=== PATIENT | male | born 1965 | race Two or more races ===

== ENCOUNTER 2021-06-14 17:12 | Inpatient (IN) | payer BC ==
[~2021-06-14] VITALS: Ht 170.2 cm; Wt 67.7 kg
[2021-06-14 17:55] LABS: BASO % 0 % (0-3); EOS # 0.1 x10^3/uL (0.0-0.7); EOS % 1 % (0-3); HEMATOCRIT 42.5 % (39.0-53.0); HEMOGLOBIN 14.6 g/dL (13.0-17.5); LYMPH # 1.1 x10^3/uL (1.0-4.8); LYMPH % 11 % (24-48); MEAN CORPUSCULAR HEMOGLOBIN 30 pg (25-35); MEAN CORPUSCULAR HGB CONC 34 g/dL (31-37); MEAN CORPUSCULAR VOLUME 87 fL (79-100); MONO # 0.7 x10^3/uL (0.0-1.1); MONO % 8 % (0-9); NEUT # 7.5 x10^3/uL (1.8-7.7); NEUT % 80 % (31-73); PLATELET COUNT 211 x10^3/uL (140-400); RED BLOOD COUNT 4.86 x10^6/uL (4.30-5.70); RED CELL DISTRIBUTION WIDTH 13.3 % (11.5-14.5); WHITE BLOOD COUNT 9.4 x10^3/uL (4.0-11.0)
[2021-06-14 18:11] LABS: CALCIUM 9.1 mg/dL (8.5-10.1); CREATININE 1.3 mg/dL (0.7-1.3); GFR 57.3; POTASSIUM 4.5 mmol/L (3.5-5.1)
[2021-06-14 18:16] LABS: ALBUMIN 2.8 g/dL (3.4-5.0); ALBUMIN/GLOBULIN RATIO 0.5 (1.0-1.7); MAGNESIUM 2.4 mg/dL (1.8-2.4); TOTAL BILIRUBIN 0.7 mg/dL (0.2-1.0); TOTAL PROTEIN 8.1 g/dL (6.4-8.2)
--- NOTE | 2021-06-14 18:21 | RAD ---
EXAM: CHEST 1 VIEW History: Cough COMPARISON: None available. TECHNIQUE: Single portable radiograph of the chest FINDINGS: The cardiac silhouette is unremarkable. Mild bibasilar lung atelectasis or infiltrates. Th e costophrenic sulci are clear and well demarcated. IMPRESSION: Mild bibasilar lung atelectasis or infiltrates. Electronically signed by: Brett Duckworth MD (06/14/2021 6:19 PM) [id number]
--- NOTE | 2021-06-14 18:43 | EKG ---
[facility] [address] [place] [address] Test Date: 2021-06-14 Test Time: 17:46:39 Pat Name: PHANI HADLEY Department: Room: Gender: M [employer]: : 1965 Requested By: SAHIL MENA Order Number: [id number] Reading MD: Measurements Intervals [place] Rate: 95 P: 44 ND: 120 QRS: 19 QRSD: 92 T: 41 QT: 344 QTc: 435 Interpretive Statements SINUS RHYTHM NORMAL ECG RI6.02 No previous ECG available for comparison
[2021-06-14] MEDS ORDERED: PIPERACILLIN/TAZOBACTAM 3.375 GM in IV NORMAL SALINE 50ML 50 ML IV ONE (21:30)
--- NOTE | 2021-06-14 22:53 | PHYS DOC ---
Past Medical History Past Medical History: Diabetes-Type II Past Surgical History: No Surgical History Smoking Status: Never Smoker Alcohol Use: None General Adult EDM: Chief Complaint: COUGH HPI: HPI: Patient is a 55 year old male who presents the ED today complaining of cough, shortness of breath, fatigue, poor appetite, symptoms began 2 weeks ago. Patient is in the ED with the son, he is Kazakh-speaking and the son is giving the history. Son states patient was seen at [facility] last week and diagnosed with seasonal allergies. He has been using the Flonase with no relief. Son denies further having any fever. Review of Systems: Review of Systems: Constitutional: Reports poor appetite and weakness. Denies fever or chills. [] Eyes: Denies change in visual acuity. [] HENT: Denies nasal congestion or sore throat. [] Respiratory: Reports cough and shortness of breath. [] Cardiovascular: Denies chest pain or edema. [] GI: Denies abdominal pain, nausea, vomiting, bloody stools or diarrhea. [] : Denies dysuria. [] Musculoskeletal: Denies back pain or joint pain. [] Integument: Denies rash. [] Neurologic: Denies headache, focal weakness or sensory changes. [] ] Psychiatric: Denies depression or anxiety. [] Heart Score: C/O Chest Pain: N/A Risk Factors: Risk Factors: DM, Current or recent (<one month) smoker, HTN, HLP, family history of CAD, obesity. Risk Scores: Score 0 - 3: 2.5% MACE over next 6 weeks - Discharge Home Score 4 - 6: 20.3% MACE over next 6 weeks - Admit for Clinical Observation Score 7 - 10: 72.7% MACE over next 6 weeks - Early Invasive Strategies Allergies: Allergies: Allergies Coded Allergies Type Severity Reaction Last Updated Verified No Known Drug Allergies 06/14/21 No Physical Exam: PE: Constitutional: Well developed, well nourished, no acute distress, non-toxic appearance. [] HENT: Normocephalic, atraumatic, bilateral external ears normal, oropharynx moist, no oral exudates, nose normal. [] Eyes: PERRLA, EOMI, conjunctiva normal, no discharge. [] Neck: Normal range of motion, no tenderness, supple, no stridor. [] Cardiovascular:Heart rate regular rhythm, no murmur [] Lungs & Thorax: Bilateral breath sounds clear to auscultation [] Abdomen: Bowel sounds normal, soft, no tenderness, no masses, no pulsatile masses. [] Skin: Warm, dry, no erythema, no rash. [] Back: No tenderness, no CVA tenderness. [] Extremities: No tenderness, no cyanosis, no clubbing, ROM intact, no edema. [] Neurologic: Alert and oriented X 3, normal motor function, normal sensory funct ion, no focal deficits noted. Cranial nerves II through XII intact Psychologic: Affect normal, judgement normal, mood normal. [] Current Patient Data: Labs: Laboratory Tests Test 06/14/21 17:40 06/14/21 17:41 06/14/21 20:50 White Blood Count 9.4 x10^3/uL (4.0-11.0) Red Blood Count 4.86 x10^6/uL (4.30-5.70) Hemoglobin 14.6 g/dL (13.0-17.5) Hematocrit 42.5 % (39.0-53.0) Mean Corpuscular Volume 87 fL (79-100) Mean Corpuscular Hemoglobin 30 pg (25-35) Mean Corpuscular Hemoglobin Concent 34 g/dL (31-37) Red Cell Distribution Width 13.3 % (11.5-14.5) Platelet Count 211 x10^3/uL (140-400) Neutrophils (%) (Auto) 80 % (31-73) H Lymphocytes (%) (Auto) 11 % (24-48) L Monocytes (%) (Auto) 8 % (0-9) Eosinophils (%) (Auto) 1 % (0-3) Basophils (%) (Auto) 0 % (0-3) Neutrophils # (Auto) 7.5 x10^3/uL (1.8-7.7) Lymphocytes # (Auto) 1.1 x10^3/uL (1.0-4.8) Monocytes # (Auto) 0.7 x10^3/uL (0.0-1.1) Eosinophils # (Auto) 0.1 x10^3/uL (0.0-0.7) Basophils # (Auto) 0.0 x10^3/uL (0.0-0.2) Sodium Level 138 mmol/L (136-145) Potassium Level 4.5 mmol/L (3.5-5.1) Chloride Level 99 mmol/L (98-107) Carbon Dioxide Level 29 mmol/L (21-32) Anion Gap 10 (6-14) Blood Urea Nitrogen 37 mg/dL (8-26) H Creatinine 1.3 mg/dL (0.7-1.3) Estimated GFR (Cockcroft-Gault) 57.3 BUN/Creatinine Ratio 28 (6-20) H Glucose Level 213 mg/dL (70-99) H Lactic Acid Level 2.5 mmol/L (0.4-2.0) H 1.3 mmol/L (0.4-2.0) Calcium Level 9.1 mg/dL (8.5-10.1) Magnesium Level 2.4 mg/dL (1.8-2.4) Total Bilirubin 0.7 mg/dL (0.2-1.0) Aspartate Amino Transferase (AST) 31 U/L (15-37) Alanine Aminotransferase (ALT) 23 U/L (16-63) Alkaline Phosphatase 107 U/L (46-116) Troponin I Quantitative < 0.017 ng/mL (0.000-0.055) < 0.017 ng/mL (0.000-0.055) VY-Ilr-W-Type Natriuretic Peptide 35 pg/mL (0-124) Total Protein 8.1 g/dL (6.4-8.2) Albumin 2.8 g/dL (3.4-5.0) L Albumin/Globulin Ratio 0.5 (1.0-1.7) L Thyroid Stimulating Hormone (TSH) 0.565 uIU/mL (0.358-3.74) SARS-CoV-2 Antigen (Rapid) Negative (NEGATIVE) Laboratory Tests 06/14/21 17:40 Laboratory Tests 06/14/21 17:40 Vital Signs: Vital Signs Date Time Temp Pulse Resp B/P (MAP) Pulse Ox O2 Delivery O2 Flow Rate FiO2 06/14/21 17:27 98.6 98 22 125/74 86 Room Air 98.6 EKG: EKG: [] Radiology/Procedures: Radiology/Procedures: []PROCEDURE: PORTABLE CHEST 1V EXAM: CHEST 1 VIEW History: Cough COMPARISON: None available. TECHNIQUE: Single portable radiograph of the chest FINDINGS: The cardiac silhouette is unremarkable. Mild bibasilar lung atelectasis or infiltrates. The costophrenic sulci are clear and well demarcated. IMPRESSION: Mild bibasilar lung atelectasis or infiltrates. Electronically signed by: Brett Duckworth MD (06/14/2021 6:19 PM) [id number] DICTATED and SIGNED BY: BRETT DUCKWORTH MD DATE: 06/14/21 [id number] 0 Course & Med Decision Making: Course & Med Decision Making Pertinent Labs and Imaging studies reviewed. (See chart for details) This is a 55-year-old male patient presenting to the ED today complaining of cough, shortness of breath, weakness, poor appetite, symptoms for 2 weeks. Patient arrives in the ED with O2 sats at 86% on room air, was put on oxygen 2 L, saturations came above 92%. Temperature 98.6, respiration 22, blood pressure 125/74. CBC with no acute findings, CMP with glucose of 213, history of diabetes type 2, anion gap is normal. Chest x-ray noted for infiltrate or atelectasis. Negative rapid Covid test. Spoke with Dr. Jones who accepted patient for admission Katie Disclaimer: Katie Disclaimer: This electronic medical record was generated, in whole or in part, using a voice recognition dictation system. Departure Departure Impression: Primary Impression: Person under investigation for COVID-19 Additional Impressions: Shortness of breath Hyperglycemia Cough Disposition: ADMITTED INPATIENT Condition: STABLE Referrals: UNKNOWN PCP NAME (PCP) SAHIL MENA [employer] Jun 14, 2021 22:53
[2021-06-14] MEDS ORDERED: ACETAMINOPHEN 325 MG TABLET. PO PRN (23:00)
[2021-06-14] MEDS ORDERED: DEXTROSE 50% 25 GM / 50ML DISP.SYRIN. IV PRN (23:00)
[2021-06-14] MEDS ORDERED: ONDANSETRON PF 4 MG/2 ML VIAL. IVP PRN (23:00)
[2021-06-14] MEDS ORDERED: MORPHINE SULFATE 2 MG/ML INJ. IVP PRN (23:00)
[2021-06-14 23:06] VITALS: BP 135/76
[2021-06-14] MEDS ORDERED: METF10007 PO (23:49)
[2021-06-14] MEDS ORDERED: LISI10TA16 PO (23:49)
[2021-06-15 03:03] VITALS: BP 117/73
[2021-06-15 07:00] VITALS: BP 117/69
[2021-06-15 08:11] LABS: CALCIUM 9.1 mg/dL (8.5-10.1); CREATININE 1.2 mg/dL (0.7-1.3); GFR 62.9; POTASSIUM 4.5 mmol/L (3.5-5.1)
[2021-06-15] MEDS: INSULIN LISPRO 300 UNITS/3 ML VIAL. SQ SCH ×3 (09:35→17:23)
[2021-06-15 11:00] VITALS: BP 114/67
[2021-06-15] MEDS ORDERED: PIP/TAZO PER PHARMACY MC PRN (11:45)
[2021-06-15] MEDS ORDERED: guaiFENesin/CODEINE 100mg/10mg 5 ML LIQUID PO PRN (11:45)
--- NOTE | 2021-06-15 11:56 | HP ---
ADMIT DATE: 06/15/2021 CHIEF COMPLAINT: Shortness of breath and cough. HISTORY OF PRESENT ILLNESS: The patient is a pleasant, healthy 55-year-old male who presented to the ER with above chief complaints. We tested him for COVID and is positive. We are admitting the patient for COVID protocol. PAST MEDICAL HISTORY: Diabetes. ALLERGIES: None. FAMILY HISTORY: Diabetes. SOCIAL HISTORY: He does not drink, smoke or take drugs. MEDICATIONS: Reviewed. Please refer to the MRAD. REVIEW OF SYSTEMS: GENERAL: No history of weight change, weakness or fevers. SKIN: No bruising, hair changes or rashes. EYES: No blurred, double or loss of vision. NOSE AND THROAT: No history of nosebleeds, hoarseness or sore throat. HEART: No history of palpitations, chest pain or shortness of breath on exertion. PULMONARY: He complains of cough and shortness of breath. GASTROINTESTINAL: Denies changes in appetite, nausea, vomiting, diarrhea or constipation. GENITOURINARY: No history of frequency, urgency, hesitancy or nocturia. NEUROLOGIC: Denies history of numbness, tingling, tremor or weakness. PSYCHIATRIC: No history of panic, anxiety or depression. ENDOCRINE: No history of heat or cold intolerance, polyuria or polydipsia. EXTREMITIES: Denies muscle weakness, joint pain, pain on walking or stiffness. PHYSICAL EXAMINATION: VITALS: Within normal limits and are stable. GENERAL: No apparent distress. Alert and oriented. HEENT: Normal cephalic atraumatic, external auditory canals are patent. Eyes: Extraocular muscles are intact, pupils are equally round and reactive to light and accommodation. MUSCULOSKELETAL: Well developed, well nourished, good range of motion. ENDOCRINE: No thyromegaly was palpated. LYMPHATICS: No cervical chain or axillary nodes were noted. HEMATOPOIETIC: No bruising. NECK: Supple, no JVD, no thyromegaly was noted. LUNGS: He has bibasilar crackles. HEART: RRR, S1, S2 present. Peripheral pulses intact, no obvious murmurs were noted. ABDOMEN: Soft, nontender. Positive bowel sounds no organomegaly, normal bowel sounds. EXTREMITIES: Without any cyanosis, clubbing, or edema. Pedal pulses intact, Homans sign is negative. NEUROLOGIC: Normal speech, normal tone. A and O x 3, moves all extremities, no obvious focal deficits. PSYCHIATRIC: Normal affect, normal mood. Stable. SKIN: No ulcerations or rashes, good skin turgor, no jaundice. VASCULAR: Good capillary refill, neurovascular bundle appears to be intact. LABORATORY DATA: COVID testing is positive. White count is normal at 9, hemoglobin 14, platelets 211. Electrolytes are normal. Glucose is high at 228. Chest x-ray shows mild bibasilar lung atelectasis or infiltrate. ASSESSMENT AND PLAN: COVID-19 respiratory failure. The patient has been admitted. We will start COVID protocol. IV steroids, IV antibiotics, vitamins and minerals, beta agonist, oxygen, cough syrup with codeine, aspirin and we will consider remdesivir. JIE/URBAN DR: Sima TID: [id number]
--- NOTE | 2021-06-15 12:00 | NUR ---
SW following. Discussed with RN, pt from home, 2L (does not use oxygen at home), cardaic diet. COVID-19 positive. Med Assist following for self pay status. SW will continue to follow.
[2021-06-15] MEDS: MULTIVITAMIN with MINERAL TABLET. PO SCH (12:48)
[2021-06-15] MEDS: PIPERACILLIN/TAZOBACTAM 3.375 GM in IV NORMAL SALINE 50ML 50 ML IV SCH ×2 (12:48→17:22)
[2021-06-15] MEDS: ASPIRIN CHEWABLE 81 MG TABLET. PO SCH (12:48)
[2021-06-15] MEDS: DOXYCYCLINE HYCLATE 100 MG in IV DEXTROSE 5% 100ML 100 ML IV SCH ×2 (14:10→21:20)
[2021-06-15 15:00] VITALS: BP 116/68
[2021-06-15 19:40] VITALS: BP_SYST 112
[2021-06-15] MEDS: methylPREDNISolone SOD SUCC PF 40 MG/ML VIAL. IV SCH (21:25)
[2021-06-15] MEDS: ENOXAPARIN 40 MG/0.4 ML SYRINGE. SQ SCH (21:25)
[2021-06-15 23:36] VITALS: BP 119/72
[2021-06-16] MEDS: PIPERACILLIN/TAZOBACTAM 3.375 GM in IV NORMAL SALINE 50ML 50 ML IV SCH ×4 (00:09→17:03)
[2021-06-16 03:45] VITALS: BP 106/63
[2021-06-16 06:41] VITALS: BP 108/60
[2021-06-16] MEDS: MULTIVITAMIN with MINERAL TABLET. PO SCH (08:24)
[2021-06-16] MEDS: ASPIRIN CHEWABLE 81 MG TABLET. PO SCH (08:24)
[2021-06-16] MEDS: methylPREDNISolone SOD SUCC PF 40 MG/ML VIAL. IV SCH ×2 (08:25→21:32)
[2021-06-16] MEDS: DOXYCYCLINE HYCLATE 100 MG in IV DEXTROSE 5% 100ML 100 ML IV SCH ×2 (08:25→21:32)
[2021-06-16] MEDS: INSULIN LISPRO 300 UNITS/3 ML VIAL. SQ SCH ×3 (08:27→17:08)
[2021-06-16 11:00] VITALS: BP 148/78
--- NOTE | 2021-06-16 11:36 | NUR ---
Pt requiring 3L at rest and 6L with activity from his 6 minute walk. Per RT, pt barely able to maintain an SpO2 of 90-91% with that 6L NC. Dr Jones notified. Going to hold discharge for today. Will continue to monitor.
--- NOTE | 2021-06-16 11:40 | PDOC ---
[facility] PROGRESS NOTE Date of Service DOS: DATE: 06/16/21 TIME: 11:34 Chief Complaint Chief Complaint COVID-19 Shortness of Breath Cough History of Present Illness History of Present Illness 06/16: Mr. Barros was seen and evaluated in his room today. He was sitting up in his bed and overall states that he is feeling much better. We discussed his chart and disposition with his nurse. Mr. Barros also states that he is fully vaccinated. Currently, Mr. Barros is on the COVID-19 Protocol (Enoxaparin, Methylprednisolone, Pipereacillin/Tazobactam, Aspirin, Multivitamins, Doxycycline, Guaifenesin/Codeine). Vitals/I&O Vitals/I&O: Vital Signs Date Time Temp Pulse Resp B/P (MAP) Pulse Ox O2 Delivery O2 Flow Rate FiO2 06/16/21 08:00 Nasal Cannula 2.0 06/16/21 06:41 97.7 71 18 108/60 (76) 98 97.7 I & O 06/15/21 06/15/21 06/16/21 15:00 23:00 07:00 Intake Total 240 ml Output Total 400 ml 700 ml Balance -400 ml -460 ml Physical Exam General: Alert, Oriented X3, Cooperative Heart: Regular rate, No murmurs Lungs: Clear Abdomen: Normal bowel sounds Extremities: No clubbing Skin: No rashes Labs Labs: Laboratory Tests Test 06/15/21 17:12 06/15/21 21:02 06/16/21 11:29 Glucose (Fingerstick) 217 mg/dL (70-99) 187 mg/dL (70-99) 370 mg/dL (70-99) Review of Systems Review of Systems: No Rash No Bleeding No Headache Assessment and Plan Assessmemt and Plan Problems Medical Problems: (1) Cough Status: Acute (2) Hyperglycemia Status: Acute (3) Person under investigation for COVID-19 Status: Acute (4) Shortness of breath Status: Acute We will start COVID protocol. IV steroids, IV antibiotics, vitamins and minerals, beta agonist, oxygen, cough syrup with codeine, aspirin and we will consider remdesivir. 1) Continue DVT Prophylaxis 2) Continue respiratory isolation 3) Home Medications 4) Full Code 5) Continue COVID-19 Protocol Comment Review of Relevant I have reviewed the following items sam (where applicable) has been applied. Medications: Current Medications Medications (Trade) Dose Ordered Sig/Raissa Route PRN Reason Start Time Stop Time Status Last Admin Dose Admin Doxycycline Hyclate 100 mg/ Dextrose 100 ml @ 50 mls/hr Q12HR IV 06/15/21 12:00 06/16/21 08:25 Multivitamins (Thera M Plus) 1 tab DAILY PO 06/15/21 12:00 06/16/21 08:24 Aspirin (Aspirin Chewable) 81 mg DAILYWBKFT PO 06/15/21 12:00 06/16/21 08:24 Piperacillin Sod/ Tazobactam Sod 3.375 gm/Sodium Chloride 50 ml @ 100 mls/hr Q6HRS IV 06/15/21 12:00 06/16/21 06:10 Methylprednisolone Sodium Succinate (SOLU-Medrol 40MG VIAL) 40 mg Q12HR IV 06/15/21 21:00 06/16/21 08:25 Enoxaparin Sodium (Lovenox 40mg Syringe) 40 mg Q24H SQ 06/15/21 21:00 06/15/21 21:25 Justifications for Admission Other Justification FERMIN MARCOS III DO Jun 16, 2021 11:40
[2021-06-16] MEDS ORDERED: INSULIN LISPRO 300 UNITS/3 ML VIAL. SQ ONE (11:45)
[2021-06-16 15:15] VITALS: BP 140/77
[2021-06-16 20:26] VITALS: BP 128/71
[2021-06-16] MEDS: ENOXAPARIN 40 MG/0.4 ML SYRINGE. SQ SCH (21:32)
[2021-06-16 23:56] VITALS: BP 147/83
[2021-06-17] MEDS: PIPERACILLIN/TAZOBACTAM 3.375 GM in IV NORMAL SALINE 50ML 50 ML IV SCH ×4 (00:33→17:06)
[2021-06-17 03:59] VITALS: BP 133/78
[2021-06-17 06:58] VITALS: BP 132/71
[2021-06-17] MEDS: MULTIVITAMIN with MINERAL TABLET. PO SCH (09:45)
[2021-06-17] MEDS: DOXYCYCLINE HYCLATE 100 MG in IV DEXTROSE 5% 100ML 100 ML IV SCH (09:45)
[2021-06-17] MEDS: ASPIRIN CHEWABLE 81 MG TABLET. PO SCH (09:45)
[2021-06-17] MEDS: INSULIN LISPRO 300 UNITS/3 ML VIAL. SQ SCH ×3 (09:46→16:59)
[2021-06-17] MEDS: methylPREDNISolone SOD SUCC PF 40 MG/ML VIAL. IV SCH (09:46)
[2021-06-17 11:00] VITALS: BP 122/73
--- NOTE | 2021-06-17 11:14 | PDOC ---
[facility] [facility] PROGRESS NOTE Date of Service DOS: DATE: 06/17/21 TIME: 11:11 Chief Complaint Chief Complaint COVID-19 Shortness of Breath Cough History of Present Illness History of Present Illness 06/16: Mr. Barros was seen and evaluated in his room today. He was sitting up in his bed and overall states that he is feeling much better. We discussed his chart and disposition with his nurse. Mr. Barros also states that he is fully vaccinated. Currently, Mr. Barros is on the COVID-19 Protocol (Enoxaparin, Methylprednisolone, Pipereacillin/Tazobactam, Aspirin, Multivitamins, Doxycycline, Guaifenesin/Codeine). 06/17: Mr. Barros was seen and examined in his room this morning. He was sitting up in his bed and was again able to eat his breakfast this morning. We discussed his chart and disposition with his nurse. Overall, Mr. Barros seems to be doing very well and we will work to discharge him today. Vitals/I&O Vitals/I&O: Vital Signs Date Time Temp Pulse Resp B/P (MAP) Pulse Ox O2 Delivery O2 Flow Rate FiO2 06/17/21 08:30 Nasal Cannula 3.0 06/17/21 06:58 97.5 68 16 132/71 (91) 94 97.5 I & O 06/16/21 06/16/21 06/17/21 15:00 23:00 07:00 Intake Total 150 ml 240 ml Output Total 400 ml 500 ml 800 ml Balance -400 ml -350 ml -560 ml Physical Exam General: Alert, Oriented X3, Cooperative Heart: Regular rate, No murmurs Lungs: Clear Abdomen: Normal bowel sounds Extremities: No clubbing Skin: No rashes Labs Labs: Laboratory Tests Test 06/16/21 11:29 06/16/21 16:48 06/16/21 20:49 06/17/21 07:34 Glucose (Fingerstick) 370 mg/dL (70-99) 318 mg/dL (70-99) 309 mg/dL (70-99) 308 mg/dL (70-99) Review of Systems Review of Systems: No Rashes No Bleeding Assessment and Plan Assessmemt and Plan Problems Medical Problems: (1) Cough Status: Acute (2) Hyperglycemia Status: Acute (3) Person under investigation for COVID-19 Status: Acute (4) Shortness of breath Status: Acut Resolving COVID-19 respiratory failure Hope to discharge this afternoon For now continue Covid protocol and the following 1. Continue DVT Prophylaxis 2. Continue respiratory isolation 3. Continue Home Medications 4. Full Code 5. Discharge/Disposition Pending See dictation Comment Review of Relevant I have reviewed the following items sam (where applicable) has been applied. Medications: Current Medications Medications (Trade) Dose Ordered Sig/Raissa Route PRN Reason Start Time Stop Time Status Last Admin Dose Admin Insulin Human Lispro (HumaLOG) 20 units 1X ONCE SQ 06/16/21 11:45 06/16/21 11:53 DC 06/16/21 11:56 Justifications for Admission Other Justification FERMIN MARCOS III DO Jun 17, 2021 11:14
--- NOTE | 2021-06-17 12:26 | NUR ---
Pt's FSBS 384. Dr. Jones notified. Orders received to give 20 units of humalog. Per Dr. Jones, pt can discharge if FSBS < 200.
[2021-06-17] MEDS ORDERED: INSULIN LISPRO 300 UNITS/3 ML VIAL. SQ ONE (12:45)
--- NOTE | 2021-06-17 13:33 | NUR ---
This RN spoke with Dr. Jones by telephone in regards to pt's previous 6 minute walk. Per Yue RT and Dr. Jones, pt able to discharge today without further reassessment. Dr. Jones also stated pt could discharge with elevated FSBS as long as pt received 20 units of Humalog. 20 units of Humalog previously administered. Will discharge.
[2021-06-17 15:00] VITALS: BP 145/75
--- NOTE | 2021-06-17 18:56 | DS ---
DATE OF DISCHARGE: 06/17/2021 ADMISSION DIAGNOSIS: COVID-19 respiratory failure. DISCHARGE DIAGNOSIS: Resolving COVID-19 respiratory failure. CONSULTS: None. PROCEDURES: None. HOSPITAL COURSE: The patient is a pleasant middle-aged male who presented with COVID-19 respiratory failure. He was admitted. We gave him COVID protocol including steroids, antibiotics, aspirin, vitamins, oxygen and cough syrup. Over the past 48 hours, he has returned to his baseline. This morning, I saw and examined him. He wants to go home. We plan to discharge. DISPOSITION: Home. ACTIVITY: As tolerated. DIET: Low sodium. MEDICATIONS: Please see the MRAD. Other medications, Z-CHILANGO #1 as directed, Medrol Dosepak #1 as directed, lisinopril 10 a day, aspirin 81 a day, metformin 1000 b.i.d., multiple vitamins. TOTAL TIME: 32 minutes. JIE/ALEIDA/FARHAT DR: Sima TID: [id number]
--- NOTE | 2021-06-17 19:17 | NUR ---
Pt left unit at 1910 by wheelchair via private vehicle with son. Pt's IV removed without complication, VSS. Discharge paperwork discussed with pt, son also updated. Oxygen tank sent home with pt. Additional questions addressed.
== END 2021-06-17 19:20 | disposition home or self-care (01) | DRG 177 ==
LOC: ER 17:12 → 5 SOUTH 21:05
PROVIDERS: ADMIT Internal Medicine; ATTEND Internal Medicine
DX: U07.1 COVID-19 (principal); J96.90 Respiratory failure, unspecified, unspecified whether with hypoxia or hypercapnia; J98.11 Atelectasis; E11.65 Type 2 diabetes mellitus with hyperglycemia; J30.2 Other seasonal allergic rhinitis; Z78.9 Other specified health status; Z83.3 Family history of diabetes mellitus; Z79.899 Other long term (current) drug therapy
CPT/HCPCS: 36415; 71045; 80048; 80053; 82962; 83605; 83735; 83880; 84443; 84484; 85025; 87040; 87426; 93005; 94618; 96374; J1650; J1815; J2543; J2920; J3490; J7060; U0003; U0005; 99285-25; G0378